=== PATIENT | female | born 1950 | race Two or more races ===

== ENCOUNTER → 2022-07-31 08:01 | Outpatient (BNVA) | payer OTHER, SELFPAY | PROVIDERS: PCP Internal Medicine; Visit Provider Nurse Practitioner Family | DX: Z13.89 Encounter for screening for other disorder (principal) ==

== ENCOUNTER 2022-09-05 17:04 | Outpatient (REF) | payer OTHER, SELFPAY ==
--- NOTE | ~2022-09-05 | MR_ITS ---
EXAMINATION: MR CERVICAL SPINE WITHOUT CONTRAST CLINICAL INFORMATION: Paresthesias of skin. The patient states right arm weakness. COMPARISON: There are no prior studies available for comparison. TECHNIQUE: MRI of the cervical spine was obtained using routine sequences without contrast. FINDINGS: VERTEBRAL BODIES AND PARASPINAL SOFT TISSUES: There is nonspecific reversal of the normal cervical lordosis. There is a mild anterolisthesis of C6 on C7. There is narrowing of intervertebral disc heights at multiple levels. There are degenerative endplate contour changes with edematous signal at C5-C6. Vertebral body heights are maintained and no fractures are demonstrated. There is relatively fatty signal in the clivus. The regional soft tissues are unremarkable. CERVICOMEDULLARY JUNCTION AND VISUALIZED POSTERIOR FOSSA: The craniocervical and posterior fossa structures are normal. Accounting for artifact, spinal cord signal appears normal. SPINAL LEVELS: C2-C3: There is mild bilateral facet arthropathy. Posterior disc contour is normal and there is no cord compression or central stenosis. The neural foramina are patent bilaterally. C3-C4: There is moderate right facet arthropathy. There is a small posterior disc protrusion without cord compression or central stenosis. There is mild right foraminal narrowing. C4-C5: There is mild right facet arthropathy. There is a central and left-sided soft disc protrusion which distorts the ventral thecal sac and mildly compresses the ventral spinal cord. There is effacement of CSF around the cord and there is mild to moderate central stenosis. There are uncovertebral osteophytes and there is moderate bilateral foraminal narrowing. C5-C6: The facet joints appear normal. There is a central and left-sided disc protrusion which distorts the ventral thecal sac and mildly deforms the spinal cord. There is likely posterior displacement of the traversing left C7 nerve root. There is severe left foraminal narrowing. C6-C7: The facet joints appear normal. There is a broad-based posterior disc protrusion which is slightly more prominent on the left and there is effacement of CSF around the cord, and there is moderate central stenosis. There are uncovertebral osteophytes and there is severe left and moderate right foraminal narrowing. C7-T1: There is mild left facet arthropathy. Posterior disc contour is normal. There is no spinal cord compression or central stenosis. The neural foramina are patent. MR/MR cervical spine wo con IMPRESSION: 1. At C4-C5 there is a central and left-sided soft disc protrusion with mild compression of the ventral spinal cord. There is mild to moderate central stenosis. There is moderate bilateral foraminal narrowing. 2. At C5-C6 there is a central and left-sided disc protrusion with mild deformity of the cord. There is likely posterior displacement of the traversing left C7 nerve root and there is severe left foraminal narrowing. 3. At C6-C7 there is a broad-based posterior disc protrusion which is slightly more prominent on the left. There is moderate central stenosis. There is severe left and moderate right foraminal narrowing.
== END 2022-09-05 17:05 | disposition home or self-care (01) ==
LOC: HO.MRI 17:04
PROVIDERS: PCP Internal Medicine; Visit Provider Nurse Practitioner Family
DX: R20.2 Paresthesia of skin (principal); M54.2 Cervicalgia; R25.2 Cramp and spasm; M79.601 Pain in right arm; F07.81 Postconcussional syndrome; R47.81 Slurred speech; H55.00 Unspecified nystagmus
CPT/HCPCS: 72141

== ENCOUNTER → 2022-10-07 13:55 | Outpatient (BNVA) | payer OTHER, SELFPAY | PROVIDERS: PCP Internal Medicine; Visit Provider Nurse Practitioner Family | DX: Z13.89 Encounter for screening for other disorder (principal) ==

== ENCOUNTER 2022-10-10 12:25 | Outpatient (REF) | payer OTHER, SELFPAY ==
--- NOTE | 2022-10-10 08:45 | EMG_ITS ---
Right median and ulnar motor and sensory studies were performed. Right radial and sensory study was performed and paraspinal muscles were tested with a needle. IMPRESSION: Pkoy-[id number]-xurqapin right median neuropathy across carpal tunnel. MD TORSTEN Raya/JEREMI / [id number]
== END 2022-10-10 12:26 | disposition home or self-care (01) ==
LOC: HO.NEURO 12:25
PROVIDERS: PCP Internal Medicine; Visit Provider Nurse Practitioner Family
DX: M54.2 Cervicalgia (principal); R20.2 Paresthesia of skin; M79.601 Pain in right arm
CPT/HCPCS: 95886; 95909

== ENCOUNTER 2022-10-23 08:28 | Outpatient (REF) | payer OTHER, SELFPAY ==
--- NOTE | ~2022-10-23 | MR_ITS ---
EXAMINATION: MRI OF THE BRAIN WITHOUT CONTRAST CLINICAL INFORMATION: Unspecified nystagmus. COMPARISON: There are no prior studies available for comparison. TECHNIQUE: MRI of the brain was obtained using routine sequences without contrast. FINDINGS: No diffusion abnormalities are identified to suggest an acute or subacute infarct. No mass effect or midline shift is seen. There is mild commensurate prominence the ventricles and sulci consistent with diffuse volume loss. There are scattered foci of hyperintense T2 and FLAIR signal in the periventricular and subcortical white matter, and the yelitza most consistent with chronic microvascular ischemic changes. No extra-axial fluid collections are seen. The cerebellum appears normal. No pathologic magnetic susceptibility artifact is identified on the gradient refocused acquisition. The craniovertebral junction, marrow signal, and midline structures are normal. There are degenerative changes in the mid and upper cervical spine. The major intracranial flow-voids at the level of the [place] of [place] are preserved. The dural venous sinus flow-voids are maintained. The mastoid air cells are well-aerated. There is mildly compressed of thickening in the ethmoid sinuses. MR/MR head/brain wo con IMPRESSION: 1. There are no acute bleeds or territorial infarcts. No masses are demonstrated. 2. There are chronic microvascular ischemic changes and there is diffuse volume loss.
== END 2022-10-23 08:29 | disposition home or self-care (01) ==
LOC: HO.MRI 08:28
PROVIDERS: PCP Internal Medicine; Visit Provider Nurse Practitioner Family
DX: F07.81 Postconcussional syndrome (principal); H55.00 Unspecified nystagmus; R20.2 Paresthesia of skin; R47.81 Slurred speech; Z86.69 Personal history of other diseases of the nervous system and sense organs
CPT/HCPCS: 70551